=== PATIENT | female | born 1950 | race Caucasian/White ===

== ENCOUNTER 2018-02-06 22:03 | Emergency (ER) | payer MEDICARE, BC, SELFPAY ==
[2018-02-06 22:06] VITALS: BP 170/111; PULSE 119; RESP 14; TEMP 36.8; O2SAT 97; BMI 28.7
--- NOTE | 2018-02-06 22:10 | ED.RN ---
NO OLD EKG'S IN MUSE
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
[2018-02-06] MEDS: Ondansetron 4 MG/2 ML Vial IV (22:32)
[2018-02-06] MEDS: Morphine 4 MG/ML Syringe IV (22:32)
[2018-02-06 22:46] VITALS: BP 138/89; PULSE 107; RESP 25; O2SAT 94
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
[2018-02-06 23:31] VITALS: BP 138/89; PULSE 105; RESP 20; O2SAT 95
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
[2018-02-06 23:55] VITALS: BP 134/94; PULSE 101; RESP 16; O2SAT 94
[2018-02-06] MEDS: HYDROcodone Bitartrate/Apap 5/325 Tablet PO (23:59)
== END 2018-02-07 00:01 | disposition home or self-care (01) ==
PROVIDERS: Emergency Provider Emergency Medicine
DX: S20.211A Contusion of right front wall of thorax, initial encounter (principal); S80.12XA Contusion of left lower leg, initial encounter; I25.2 Old myocardial infarction; I25.10 Atherosclerotic heart disease of native coronary artery without angina pectoris; E78.00 Pure hypercholesterolemia, unspecified; Z96.652 Presence of left artificial knee joint; Z79.899 Other long term (current) drug therapy; V43.53XA Car driver injured in collision with pick-up truck in traffic accident, initial encounter; Y93.I9 Activity, other involving external motion; Y92.410 Unspecified street and highway as the place of occurrence of the external cause; Y99.8 Other external cause status
CPT/HCPCS: 71250; 73590; 96374; 96375; 99284; A4216; J2405